=== PATIENT | female | born 2000 | race Caucasian/White ===

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

== ENCOUNTER 2019-06-20 20:03 | Emergency (ER) | payer BC ==
[~2019-06-20] VITALS: Ht 162.6 cm; Wt 56.8 kg
[~2019-06-20 20:03] MED LIST: ATIVAN 0.50.5 MG/TAB PO; BIRTH CONTROL
[2019-06-20 20:08] VITALS: TEMP 98
[2019-06-20] MEDS ORDERED: ASPIRIN E.C. 8181 MG PO (20:28)
[2019-06-20] MEDS ORDERED: ZOLOFT 25MG25 MG PO (20:28)
[2019-06-20 20:48] LABS: BASO # 0.1 (0.0-0.2); BASO % 0.6 % (0.0-2.0); EOS # 0.1 (0.0-0.7); GRAN # 6.8 (1.4-6.5); HEMATOCRIT 37.7 % (35.0-45.0); HEMOGLOBIN 12.6 g/dl (12.0-15.0); LYMPH # 2.7 (1.2-3.4); LYMPH % 26.1 % (20.0-51.0); MEAN CELL VOLUME 86 fl (80.0-95.0); MEAN CORPUSCULAR HEMOGLOBIN 29 pg (26.0-32.0); MEAN CORPUSCULAR HGB CONC 33 g/dl (33.0-37.0); MEAN PLATELET VOLUME 10.3 fl (7.4-10.4); MONO # 0.7 (0.1-0.6); PLATELET COUNT 270 K/mm3 (130-400); RED BLOOD COUNT 4.38 M/mm3 (4.10-5.30); REDCELL DISTRIBUTION WIDTH-CV 12.3 % (11.5-14.5)
[2019-06-20 20:57] LABS: ALANINE AMINOTRANSFERASE < 6 U/L (9-52); ALBUMIN 4.5 gm/dL (3.5-5.0); ALKALINE PHOSPHATASE 63 U/L (50-136); ANION GAP 9 mmol/L (7-16); AST,SGOT 19 U/L (15-37); BILIRUBIN,TOTAL 0.3 mg/dL (0.0-1.0); BLOOD UREA NITROGEN 15 mg/dL (7-17); CALCIUM 9.3 mg/dL (8.4-10.2); CARBON DIOXIDE 25 mmol/L (22-30); CHLORIDE 105 mmol/L (98-107); CREATININE, serum 0.79 (0.52-1.25); GLUCOSE 97 mg/dL (74-106); POTASSIUM 3.6 mmol/L (3.4-5.0); SODIUM 139 mmol/L (137-145); TOTAL PROTEIN 7.5 gm/dL (6.4-8.2)
[2019-06-20 21:10] LABS: TROPONIN-I < 0.012 ng/mL (0.000-0.035)
[2019-06-20 22:18] VITALS: BP 114/72; PULSE 83
== END 2019-06-20 22:18 | disposition home or self-care (01) ==
LOC: COL.ER 20:03
PROVIDERS: Family Medicine
DX: R07.89 Other chest pain (principal); Z79.82 Long term (current) use of aspirin
CPT/HCPCS: Q9967

== ENCOUNTER → 2019-10-03 | Outpatient (CLI) | payer BC ==
[~2019-10-03] MED LIST changes: +ASPIRIN E.C. 8181 MG PO; +ZOLOFT 25MG25 MG PO
== END ==
LOC: COL.RAD 06:58
DX: R10.11 Right upper quadrant pain (principal)
CPT/HCPCS: A9537; J2805